=== PATIENT | male | born 2000 | race Caucasian/White ===

== ENCOUNTER 2021-01-29 13:52 | Emergency (ER) | payer SELFPAY ==
[~2021-01-29] VITALS: Ht 185.4 cm; Wt 63.5 kg
--- NOTE | 2021-01-29 14:05 | NUR ---
THE PATIENT BIBS FOR DISLOCATED HIS LEFT SHOULDER WHILE LAYING PRONE WITH LEFT ARM PROPPED UP. WILL CONTINUE TO MONITOR THE PATIENT.
[2021-01-29] MEDS ORDERED: FENTANYL PF 100MCG/2ML AMPUL ONE ×2 (14:37→14:46)
[2021-01-29] MEDS ORDERED: FENTANYL PF 100MCG/2ML AMPUL IV ONE ×2 (15:00)
[2021-01-29] MEDS ORDERED: IBUPROFEN 400 MG TABLET ONE (15:47)
--- NOTE | 2021-01-29 15:50 | NUR ---
MOTRIN [address] DO[address] THE ORDER IS READ BACK, VERIFIED. NOTED AND CARRIED OUT.
--- NOTE | 2021-01-29 15:55 | NUR ---
Patient discharged to home in stable condition. Written and verbal after care instructions given. Patient verbalizes understanding of instruction.
[2021-01-29 15:56] VITALS: BP 122/67
[2021-01-29] MEDS ORDERED: IBUPROFEN 400 MG TABLET PO ONE (16:00)
== END 2021-01-29 15:56 | disposition home or self-care (01) ==
LOC: ER 13:54
DX: S43.085A Other dislocation of left shoulder joint, initial encounter (principal); Z60.2 Problems related to living alone; X58.XXXA Exposure to other specified factors, initial encounter; Y93.89 Activity, other specified; Y92.89 Other specified places as the place of occurrence of the external cause; Y99.8 Other external cause status
CPT/HCPCS: 23650; 73030 ×2; 99284; J3010 ×2